=== PATIENT | male | born 1950 | race Caucasian/White ===

== ENCOUNTER 2018-05-25 06:39 | Inpatient (IN) | payer MEDICARE, OTHER ==
[2018-05-20 10:55] LABS: BASOPHILS # (AUTO) 0.2 X10'3 (0-0.2); BASOPHILS % (AUTO) 2.1 % (0-1); EOSINOPHILS # (AUTO) 0.3 X10'3 (0-0.9); EOSINOPHILS % (AUTO) 3.1 % (0-6); LYMPHOCYTES # (AUTO) 2.6 X10'3 (1.1-4.8); LYMPHOCYTES % (AUTO) 31.1 % (21-51); MEAN CORPUSCULAR HEMOGLOBIN 29.8 PG (27.0-31.0); MEAN CORPUSCULAR HGB CONC 33.3 % (33.0-36.5); MEAN CORPUSCULAR VOLUME 89.5 FL (78-98); MEAN PLATELET VOLUME 7.8 FL (7.4-10.4); MONOCYTES # (AUTO) 0.6 X10'3 (0-0.9); MONOCYTES % (AUTO) 7.3 % (2-12); NEUTROPHILS # (AUTO) 4.8 X10'3 (1.8-7.7); NEUTROPHILS % (AUTO) 56.4 % (42-75); PRE OP HEMATOCRIT 43.6 % (42.0-52.0); PRE OP HEMOGLOBIN 14.5 g/dL (14.0-17.9); PRE OP PLATELET COUNT 236 X10'3 (140-440); RED BLOOD COUNT 4.87 X10'6 (4.70-6.10); RED CELL DISTRIBUTION WIDTH 12.9 % (11.5-14.5)
[2018-05-20 11:01] LABS: CLARITY,URINE CLEAR (Clear); COLOR,URINE YELLOW (Yellow); GLUCOSE, URINE NEGATIVE (Neg); KETONES,URINE NEGATIVE (Neg); LEUKOCYTE ESTERASE ,URINE NEGATIVE (Neg); NITRITES, URINE NEGATIVE (Neg); OCCULT BLOOD,URINE MODERATE (Neg); PH,URINE 6.5 (4.8-8.0); PROTEIN,URINE 100 mg/dl (Neg); UROBILINOGEN,URINE 0.2 E.U/dL (0.2-1.0)
[2018-05-20 11:02] LABS: UA COLLECTION TYPE NON-SPECIFIED
[2018-05-20 11:10] LABS: BACTERIA,URINE NONE SEEN /HPF (Neg); MUCUS STRANDS NONE SEEN /LPF (Neg); RBC,URINE 0-2 /HPF (0-2); SQUAMOUS EPITHELIAL CELL,UR MODERATE /LPF (FEW); WBC,URINE 0-4 /HPF (0-4)
[2018-05-20 11:12] LABS: PRE OP PROTIME 10.1 SECONDS (9.0-12.0)
[2018-05-20 12:00] LABS: HEMOGLOBIN A1C 5.8 % (4.5-6.2)
[2018-05-20 12:46] LABS: ALBUMIN 3.9 G/DL (3.4-5.0); ALKALINE PHOSPHATASE 83 IU/L (46-116); BLOOD UREA NITROGEN 24 MG/DL (7-18); BUN/CREATININE RATIO 10.7 (5.4-32.0); CALCIUM 9.4 MG/DL (8.5-10.1); CHLORIDE 104 MMOL/L (99-107); CREATININE 2.24 MG/DL (0.60-1.10); PRE OP ALT 30 U/L (30-65); PRE OP ANION GAP 14 (8-16); PRE OP AST 26 U/L (10-37); PRE OP BILIRUB, TOTAL 0.5 MG/DL (0.0-1.0); PRE OP GLUCOSE 127 MG/DL (70-104); PRE OP SODIUM 139 MMOL/L (135-145); TOTAL CARBON DIOXIDE 20.9 MMOL/L (24-32); TOTAL PROTEIN 7.7 G/DL (6.4-8.2); eGFR 29 ML/MIN
[2018-05-25] VITALS (16 sets, daily range): BP systolic 129–169; BP diastolic 69–89
[~2018-05-25] VITALS: Ht 182.9 cm; Wt 109.0 kg
[~2018-05-25 06:39] MED LIST: ALBU6.7H INH; AMLO2.5T2 PO; BECL7.3A7 INH; CLOP75TA15 PO; CYCL-1 PO; DOCUMENT DATE & TIME OF BETA-BLOCKER PO ONE; LOSA25TA96 PO; METO50TA7 PO; OMEP10SU2 PO; ROSU40TA PO; albuterol 2.5 MG/3 ML nebule NEB ONE; cefazolin/dext.iso 2gm/50ml 50 ML IV ONE; famotidine 20mg tablet PO ONE; ringers solution, lacted 1,000 ML IV SCH
[2018-05-25] MEDS ORDERED: LIDOcaine 1% (10mg/ml) 2ml vial ONE ×2 (07:10→10:26)
[2018-05-25] MEDS ORDERED: heparin 10,000 units/1 ML INJ ONE (09:44)
[2018-05-25] MEDS ORDERED: ringers solution, lacted 1,000 ML IV SCH (11:37)
[2018-05-25] MEDS ORDERED: hydrALAZINE 20mg/ml inj. IV PRN (11:40)
[2018-05-25] MEDS ORDERED: midazolam 2 mg/2 ml injection ONE (11:40)
[2018-05-25] MEDS ORDERED: morphine 4 MG/ML inj SYRINge IV PRN ×2 (11:40)
[2018-05-25] MEDS ORDERED: labetalol 20mg/4ml (5mg/ml) syringe IV PRN (11:40)
[2018-05-25] MEDS ORDERED: fentaNYL/PF 50MCG/1 ML 2ML syringe ONE (11:40)
[2018-05-25] MEDS ORDERED: fentaNYL/PF 50MCG/1 ML 2ML syringe IV PRN (11:40)
[2018-05-25] MEDS ORDERED: ondansetron/PF 4mg/2ml inj IV PRN ×2 (11:40→14:10)
[2018-05-25] MEDS ORDERED: rocuronium 10mg/ml inj IV ONE (11:45)
[2018-05-25] MEDS ORDERED: LIDOcaine 2% (20mg/ml) 5ml vial ONE (11:45)
[2018-05-25] MEDS ORDERED: propofol inj 20 ML IV ONE (11:45)
[2018-05-25] MEDS ORDERED: sevoflurane 250ml liquid IH ONE (12:29)
[2018-05-25] MEDS ORDERED: ondansetron/PF 4mg/2ml inj ONE (12:29)
[2018-05-25] MEDS ORDERED: dexamethasone sod phosphate 10mg/ml inj ONE (12:29)
[2018-05-25] MEDS ORDERED: heparin 1,000unit/ml 10ml vial 10 ML ONE (13:23)
[2018-05-25] MEDS ORDERED: naloxone 0.4 mg/ml inj IV PRN (14:10)
[2018-05-25] MEDS ORDERED: HYDROcodone/acetaminophen 5mg/325mg tablet PO PRN (14:10)
[2018-05-25] MEDS ORDERED: CADD PCA waste documentation MC PRN (14:10)
[2018-05-25] MEDS: fentaNYL/PF 50MCG/1 ML 2ML syringe IV PRN ×2 (14:34→14:49)
[2018-05-25] MEDS: HYDROmorphone/NS 1 mg/ml CADD 50 ML IV SCH ×6 (14:55→23:00)
[2018-05-25] MEDS ORDERED: cyclobenzaprine 10mg tablet PO PRN (18:40)
[2018-05-25] MEDS ORDERED: albuterol 2.5 MG/3 ML nebule NEB PRN (18:40)
[2018-05-25] MEDS: losartan 25mg tablet PO SCH ×2 (19:41→19:43)
[2018-05-25] MEDS: budesonide 0.5mg/2ml UD nebule IH SCH (20:00)
[2018-05-26] VITALS: BP 130/70
[2018-05-26] MEDS: HYDROmorphone/NS 1 mg/ml CADD 50 ML IV SCH ×9 (01:00→16:54)
[2018-05-26] MEDS: losartan 25mg tablet PO SCH (07:36)
[2018-05-26 07:40] VITALS: BP 165/93
[2018-05-26] MEDS ORDERED: metoprolol succinate 25mg (24-HOUR) SR. Tablet PO SCH (08:00)
[2018-05-26] MEDS ORDERED: clopidogrel 75mg tablet PO SCH (08:00)
[2018-05-26] MEDS ORDERED: amLODIPine 5mg tablet PO SCH (08:00)
[2018-05-26] MEDS ORDERED: enoxaparin 40mg/0.4ml syringe SQ SCH (08:00)
[2018-05-26] MEDS: budesonide 0.5mg/2ml UD nebule IH SCH (09:22)
[2018-05-26 11:45] VITALS: BP 126/76
== END 2018-05-26 19:00 | disposition home or self-care (01) | DRG 254 ==
LOC: PAS IN 06:39 → EDSTATUS 13:00 → SUR 3N 15:20
PROVIDERS: ADMIT Surgery; ATTEND Surgery
PROC: 04CK0ZZ Extirpation of Matter from Right Femoral Artery, Open Approach (ICD-10-PCS; principal; 2018-05-25 12:34)
DX: I73.9 Peripheral vascular disease, unspecified (principal); I10 Essential (primary) hypertension; J44.9 Chronic obstructive pulmonary disease, unspecified; Z79.899 Other long term (current) drug therapy; Z87.891 Personal history of nicotine dependence; Z80.1 Family history of malignant neoplasm of trachea, bronchus and lung
CPT/HCPCS: 36415; 71046; 80053; 81001; 83036; 85025; 85610; 85730; 86885; 86900; 86901; 87070; 88304; 94640; 94760; A6258; A7000; C1758; G0378; J0690; J1100; J1170; J1644; J1650; J2001; J2250; J2405; J2704; J3010; J3490; J7030; J7120; J7626